=== PATIENT | male | born 1970 | race African-American/Black ===

== ENCOUNTER 2018-07-17 09:32 | Day surgery (SDC) | payer OTHER ==
[~2018-07-17 09:32] MED LIST: CEFAZOLIN 1 GM INJ; CEFAZOLIN 2 GM/50 ML (PMX) 50 ML IVPB; SUCCINYLCHOLINE CHLORIDE 100 MG/5 ML SYG IV
[2018-07-17] MEDS ORDERED: LIDOCAINE 2% (SDV) 5 ML INJ (10:37)
[2018-07-17] MEDS ORDERED: GLYCOPYRROLATE 0.4 MG INJ (10:37)
[2018-07-17] MEDS ORDERED: NEOSTIGMINE 3 MG/3 ML SYRINGE (10:37)
[2018-07-17] MEDS ORDERED: ROCURONIUM 50 MG INJ (10:37)
[2018-07-17] MEDS ORDERED: PROPOFOL 20 ML (10:37)
[2018-07-17] MEDS ORDERED: FENTAnyl 50 MCG/ML VIAL (10:37)
[2018-07-17] MEDS ORDERED: MIDAZOLAM 1 MG/ML 2 ML INJ (10:38)
[2018-07-17] MEDS ORDERED: ONDANSETRON 4 MG INJ (10:38)
[2018-07-17] MEDS ORDERED: DEXAMETHASONE 4 MG/ML 1 ML INJ (10:38)
[2018-07-17] MEDS ORDERED: FLUMAZENIL 0.5 MG INJ (11:13)
[2018-07-17] MEDS ORDERED: SUGAMMADEX SODIUM 200 MG/2 ML VIAL IV (11:16)
[2018-07-17] MEDS ORDERED: POLYMYXIN/BACITRACIN 1L IRRIG (11:40)
[2018-07-17] MEDS ORDERED: morphine (1 MG/ML) 10ML SYRINGE IV ×3 (12:00)
[2018-07-17] MEDS ORDERED: OXYCODONE/ACETAMINOPHEN (5/325) TAB PO ×2 (12:00)
[2018-07-17] MEDS ORDERED: FENTAnyl 50 MCG/ML VIAL IV ×2 (12:00)
[2018-07-17] MEDS ORDERED: MEPERIDINE 25 MG INJ IV (12:00)
[2018-07-17] MEDS ORDERED: MIDAZOLAM 1 MG/ML 2 ML INJ IV (12:00)
[2018-07-17] MEDS ORDERED: DIPHENHYDRAMINE 50 MG INJ IV (12:00)
[2018-07-17] MEDS ORDERED: hydrALAzine 20 MG INJ IV (12:00)
[2018-07-17] MEDS ORDERED: LABETALOL HCL 20MG INJ IV (12:00)
[2018-07-17] MEDS ORDERED: HYDROmorphONE 1 MG/5 ML IV SYRINGE IV ×3 (12:00)
[2018-07-17] MEDS ORDERED: EPHEDrine SULFATE 50 MG/5 ML SYG IV (12:00)
[2018-07-17] MEDS ORDERED: ONDANSETRON 4 MG INJ IV (12:00)
[2018-07-17] MEDS ORDERED: ATROPINE 1 MG/10 ML SYRINGE IV (12:00)
[2018-07-17] MEDS: BUPIVACAINE 0.5% (SDV) 30 ML INJ (13:06)
== END 2018-07-17 16:30 | disposition home or self-care (01) ==
LOC: SDS 09:32
DX: M20.41 Other hammer toe(s) (acquired), right foot (principal); E11.9 Type 2 diabetes mellitus without complications; I73.9 Peripheral vascular disease, unspecified; M79.674 Pain in right toe(s)
CPT/HCPCS: 28285; 73630; 82962; 88304